=== PATIENT | female | born 1985 | race Caucasian/White ===

== ENCOUNTER 2025-03-13 02:58 | Emergency (ER) | payer OTHER, SELFPAY ==
[2025-03-13] VITALS (26 sets, daily range): BP systolic 126–148; BP diastolic 69–91; PULSE 51–70; TEMP 36.6; O2SAT 98–100; BMI 39.2
--- OUTSIDE RECORDS SUMMARY | 2025-03-13 03:06 | XMS_ITS | Clinical Summary ---
Author Organization [facility] Address [address] [place] [address] Care Team Providers Care Cultured Marble Products Maker Name Role Phone Bailey Ash MD Unavailable Allergies No known active allergies Medications MedicationSigDispense QuantityRefillsLast FilledStart DateEnd DateStatus omeprazole (PriLOSEC) [address] capsule Take 40 mg by mouth in the morning. Take before meals. Do not crush or chew. Active FLUoxetine (PROzac) 20 MG capsule Take 20 mg by mouth DailyActive busPIRone (Buspar) 10 MG tablet Take 10 mg by mouth in the morning and 10 mg before bedtime.Active spironolactone (Aldactone) 25 MG tablet Take 25 mg by mouth DailyActive loratadine (Claritin) 10 MG tablet Take 10 mg by mouthActive methylPREDNISolone (Medrol Dospak) 4 MG tablets Indications:Plantar fasciitisTake as directed on package. 21 tablet 5Active ammonium lactate (Amlactin) 12 % cream Indications:PorokeratosisApply topically Daily 140 g ctive meloxicam (Mobic) 15 MG tablet Indications:Plantar fasciitisTake 1 tablet (15 mg) by mouth Daily for 21 days 21 tablet Expired Active Problems No known active problems Encounters DateTypeDepartmentCare JantCgjgiiadhzy51/03/2025 9:00 AM EDTOffice Visit [facility] [address] [place] [address] Mathew Interiano DPM Plantar fasciitis (Primary Dx); Left foot pain; Equinus contracture of left ankle; Etyybkyzlspkm85/03/2025amboo flowsheet [facility] [address] [place] [id number] Mathew Interiano DPM 02/11/20257896Cmkuyb17/02/2025Travelfrom Last 3 Months Immunizations ImmunizationAdministration DatesNext GhrTWK132Pfizer Purple Cap SARS-CoV-2 Boyvaqpfogb30/10/2021,12/29/2020 Family History Medical HistoryRelationNameCommentsNo Known ProblemsFatherDiabetesMotherLupus Motherdegenerative disc diseaseMotherRelationNameStatusCommentsFatherMother Unknown Social History Tobacco UseTypesPacks/DayYears UsedDateSmoking Tobacco: NeverSmokeless Tobacco: Never Tobacco Cessation:Counseling Given: No Alcohol UseStandard Drinks/WeekCommentsNot Currently0 (1 standard drink = 0.6 oz pure alcohol)CommentsUnknownSex and Gender InformationValueDate Recorded Sex Assigned at BirthNot on fileLegal BuqXtkhrm07/22/2024 12:56 PM ESTGender IdentityNot on fileSexual OrientationNot on file Last Filed Vital Signs Vital SignReadingTime TakenCommentsBlood Pressure--Pulse--Temperature-- Respiratory Rate--Oxygen Saturation--Inhaled Oxygen Concentration--Gtyosc234 kg (250 lb)02/11/2025 9:04 AM XPRTrcvdu350.2 cm (5' 7 )02/11/2025 9:04 AM EDTBody Mass Index39.161 9:04 AM EDT Plan of Treatment DateTypeDepartmentCare Team (Latest Contact Info)Zwekjbhrbad49/07/2025 8:30 AM ESTOffice Visit [facility] [address] [place] [address] Mathew Interiano DPM [address] [place] [address] Health MaintenanceDue DateLast DoneCommentsPap Smear2007Cervical Cancer Lzeehwpyg54/08/2016HPV/Fzybyy9602/17/2016Influenza Vaccine (#1)2025 Insurance Care Teams Team MemberRelationshipSpecialtyStart DateEnd Date Bailey Ash MD [facility] [place] [address] Primary Care ProviderFamily Nstloqyq56/3/25
--- OUTSIDE RECORDS SUMMARY | 2025-03-13 03:06 | XMS_ITS | Clinical Summary ---
Author Organization [facility] Address [address], [address] [place] [address] Care Team Providers Care Rand Maker Name Role Phone Ruba Bean CORN CUTTER - PAPER DELIVERER Primary Care Provider [phone] Social History Tobacco UseTypesPacks/DayYears UsedDateSmoking Tobacco: Never Assessed CommentsUnknownSex and Gender InformationValueDate RecordedSex Assigned at Not on fileLegal RboFjebmd49/10/2013 7:29 PM ESTGender IdentityNot on fileSexual OrientationNot on file Plan of Treatment Health MaintenanceDue DateLast DoneCommentsDepression Mjybmd5502/16/1998Varicella vaccine (1 of 2 - 13+ 2-dose series)1999HIV piatkj2302/16/2001Hepatitis C qdvoov2802/17/2004Hepatitis B vaccine (1 of 3 - 19+ 3-dose series)2005Pap smear2007Cervical cancer xtoxhq3802/17/2016HPV (without or with Pap) 02/17/2016Flu vaccine (#1)5COVID-19 Vaccine ( season) 509/02/2021, 1DTaP/Tdap/Td vaccine (2 - Tdap)09/04/2031 09/03/2021HPV vaccine (No Doses Required)CompletedHepatitis A vaccineAged OutNo longer eligible based on patient's age to complete this topicHib vaccineAged Out No longer eligible based on patient's age to complete this topicMeningococcal (ACWY) vaccineAged OutNo longer eligible based on patient's age to complete this topicMeningococcal B vaccineAged OutNo longer eligible based on patient's age to complete this topicPneumococcal 0-49 years VaccineAged OutNo longer eligible based on patient's age to complete this topicPolio vaccineAged OutNo longer eligible based on patient's age to complete this topic Insurance * Guarantor: Charisma Bobby TypeRelation to PatientDate of BirthPhoneBilling AddressPersonal/SekvqsBwjl1985 [address] [place] [address] Care Teams Team MemberRelationshipSpecialtyStart DateEnd Date Ruba Bean APRN - ANU [address] [place] [address] PCP - GeneralNurse Practitioner06/16/23
--- OUTSIDE RECORDS SUMMARY | 2025-03-13 03:06 | XMS_ITS | Clinical Summary ---
Author Organization [facility] tem Address [id number] [place] [address] Care Team Providers Care Gun Fitter Name Role Phone Nilsa Baileyjulio Villalta APRN-PLASMA SPECIALIST Primary Care Provider + Allergies No known active allergies Medications MedicationSigDispense QuantityRefillsLast FilledStart DateEnd DateStatus FLUoxetine (PROzac) 20 mg capsule Take 1 capsule (20 mg total) by mouth in the morning.Active busPIRone (BUSPAR) 10 mg tablet Take 1 tablet (10 mg total) by mouth 3 (three) times a day.Active omeprazole (PriLOSEC) 40 mg capsule Take 1 capsule (40 mg total) by mouth in the morning.Active Active Problems No known active problems Encounters DateTypeDepartmentCare ZfxaWqbxctsfyvg14/02/2025 12:55 PM EDT - 01/11/2025 11:59 PM EDTHospital Encounter [facility] [address] [place] [address] Pain in left foot Discharge Disposition: Home01/11/2025Travelfrom Last 3 Months Family History Medical HistoryRelationNameCommentsDiabetesMotherHeart failureMotherLupusMother RelationNameStatusCommentsFatherUnknownMotherDeceased Social History Tobacco UseTypesPacks/DayYears UsedDateSmoking Tobacco: NeverSmokeless Tobacco: Never Tobacco Cessation:Counseling Given: Not Answered Alcohol UseStandard Drinks/WeekCommentsNot Currently0 (1 standard drink = 0.6 oz pure alcohol)ChildcareAnswerDate ZinjvzqxMcxeegbltFssjxpe99/12/2019Employment AnswerDate JbpeyyfnHgowsnihttWasylbj44/12/2019Hunger ScreeningAnswerDate RecordedWithin the past 12 months we worried whether our food would run out before we got money to buy more.Sometimes True07/16/2024Within the past 12 months the food we bought just didn't last and we didn't have money to get more. Never True07/16/2024CommentsUnknownSex and Gender InformationValueDate RecordedSex Assigned at BirthNot on fileLegal RmbArnizs80/06/2015 11:47 AM EDT Gender IdentityNot on fileSexual OrientationNot on file Last Filed Vital Signs Vital SignReadingTime TakenCommentsBlood Opqmzdjf676/70007/23/2024 10:26 AM EDT Ztrsx201107/23/2024 10:26 AM AQNXvxokluynjg30.1 ??C (97 ??F)07/23/2024 8:45 AM EDT Respiratory Oozo647907/23/2024 10:26 AM EDTOxygen Urahgbkgoq386%07/23/2024 10:26 AM EDTInhaled Oxygen Concentration--Heaoyz916.6 kg (246 lb)07/23/2024 8:45 AM APTPqudhl632.7 cm (5' 8 )07/23/2024 8:45 AM EDTBody Mass Index37. 8:45 AM EDT Plan of Treatment Health MaintenanceDue DateLast DoneCommentsDepression Nbtpcckvt94/08/1998Adult BMI Follow Up Plan02/17/2004Pap Smear2007Influenza Ghkgngo6201/10/2025dult BMI Wmclrasog69Tobacco Cgmwcouit76DTaP,Tdap and Td Vaccines (2 - Tdap) Medical Devices Not on file Procedures Procedure NamePriorityDate/TimeAssociated DiagnosisCommentsVITAMIN D 25 HYDROXY Bowlevo5201/11/2025 2:08 PM EDT Encounter for general adult medical examination without abnormal findings T3, SMAQGyldrqg85/02/2025 2:08 PM EDT Encounter for general adult medical examination without abnormal findings THYROID PROFILE INCLUDES TSH YY4Znqbpop13/02/2025 2:08 PM EDT Encounter for general adult medical examination without abnormal findings LIPID ZZIUVZWMgfmnej13/02/2025 2:08 PM EDT Encounter for general adult medical examination without abnormal findings CBC WITH AUTO BPMRVNQWVLOWFzuckzb16/02/2025 2:08 PM EDT Encounter for general adult medical examination without abnormal findings COMPREHENSIVE METABOLIC KCTIKEfhlgjw49/02/2025 2:08 PM EDT Encounter for general adult medical examination without abnormal findings XR FOOT LT MIN 3 LNEKhrfekn76/02/2025 1:39 PM EDT Pain in left foot from Last 3 Months Results * Thyroid profile includes TSH FT4 (01/11/2025 2:08 PM EDT)ComponentValueRef RangeTest MethodAnalysis TimePerformed AtPathologist SignatureFREE T40.630.61 - 1.60 ng/dL01/11/2025 6:50 PM [facility] LABORATORYTSH1.89 0.49 - 4.67 uIU/mL01/11/2025 6:50 PM [facility] Specimen (Source)Anatomical Location / LateralityCollection Method / Volume Collection TimeReceived TimeBloodVenous blood / UnknownVenipuncture / Unknown 01/11/2025 2:08 PM EDT01/11/2025 2:09 PM EDT Narrative Authorizing ProviderResult TypeResult StatusAiharry Ash SKIN PEELING MACHINE OPERATOR-CNPLAB BLOOD ORDERABLESFinal ResultPerforming OrganizationAddressCity/State/ZIP CodePhone Number [facility] [address] [place] [address], * CBC auto differential (01/11/2025 2:08 PM EDT)ComponentValueRef RangeTest MethodAnalysis TimePerformed AtPathologist SignatureWBC7.64 - 11 x10E9/L 01/11/2025 6:45 PM [facility] LABORATORYRBC Count4.603.8 - 5.2 X10E12/L01/11/2025 6:45 PM [facility] Poudhpqqhq72.911.7 - 15.5 g/dL01/11/2025 6:45 PM [facility] LILBMAZVQOCptqatrxmi37.035 - 47 %01/11/2025 6:45 PM [facility] WHGKKDRZLSUNZ4285 - 100 fL01/11/2025 6:45 PM [facility] UVFIQKVOPDLFC49.227 - 34 pg01/11/2025 6:45 PM [facility] YOOXFHUVUOSNJK30.932 - 36 g/dL01/11/2025 6:45 PM [facility] XUOGREKAHSSQK46.211.5 - 15 %01/11/2025 6:45 PM [facility] LABORATORYPlatelet Hghmz673832 - 450 X10E9/L01/11/2025 6:45 PM [facility] LABORATORYMPV8.97 - 12 fL01/11/2025 6:45 PM [facility] LABORATORYNeutrophils %59.2%01/11/2025 6:45 PM [facility] LABORATORYLymphocytes %31.1%01/11/2025 6:45 PM [facility] LABORATORYMonocytes %7.4%01/11/2025 6:45 PM [facility] LABORATORYEosinophils %1.6%01/11/2025 6:45 PM [facility] LABORATORYBasophils %0.7%01/11/2025 6:45 PM [facility] LABORATORYNeutrophils Absolute (A)4.51.5 - 6.6 10*3/uL 01/11/2025 6:45 PM [facility] LABORATORYLymphocytes Absolute 2.41.0 - 3.5 10*3/uL01/11/2025 6:45 PM [facility] Monocytes Absolute0.60.0 - 0.9 10*3/uL01/11/2025 6:45 PM [facility] LABORATORYEosinophils Absolute0.10.0 - 0.4 10*3/uL01/11/2025 6:45 PM [facility] LABORATORYBasophils Absolute0.00.0 - 0.2 10*3/uL 01/11/2025 6:45 PM [facility] LABORATORYDifferential Type AUTOMATED HFCDTOASEBFP36/02/2025 6:45 PM [facility] LABORATORYSpecimen (Source)Anatomical Location / LateralityCollection Method / VolumeCollection TimeReceived TimeBloodVenous blood / UnknownVenipuncture / Zrvfjxy0001/11/2025 2:08 PM EDT01/11/2025 2:09 PM EDT Narrative Authorizing ProviderResult TypeResult StatusAiharry Ash SKIN PEELING MACHINE OPERATOR-CNPLAB BLOOD ORDERABLESFinal ResultPerforming OrganizationAddressCity/State/ZIP CodePhone Number [facility] [address] [place] [address], * (ABNORMAL) Vitamin D 25 hydroxy (01/11/2025 2:08 PM EDT)ComponentValueRef RangeTest MethodAnalysis TimePerformed AtPathologist SignatureVITAMIN D 25 HYD TOT16.1(L)30.0 - 100.0 ng/mL01/11/2025 6:53 PM [facility] LABORATORYSpecimen (Source)Anatomical Location / LateralityCollection Method / VolumeCollection TimeReceived TimeBloodVenous blood / UnknownVenipuncture / Ldqjxhz8401/11/2025 2:08 PM EDT01/11/2025 2:09 PM EDT Narrative [facility] - 01/11/2025 6:53 PM EDT Vitamin D status 25 [place] Vitamin D Deficiency <20 ng/mL Insufficiency ? 20-29 ng/mL Sufficiency ? 30-100 ng/mL Toxicity >100 ng/mL NOTE: A pediatric reference range has not been established by the hand sizer of this kit. The [place] [employer] recommends a Vitamin D level of = or >20ng/mL in infants and children. Authorizing ProviderResult TypeResult StatusYasmineharry Ash [facility] BLOOD ORDERABLESFinal ResultPerforming OrganizationAddressCity/State/ZIP CodePhone Number [facility] [address] [place] [address], * T3, free (01/11/2025 2:08 PM EDT)ComponentValueRef RangeTest MethodAnalysis TimePerformed AtPathologist SignatureFREE T33.372.50 - 3.90 pg/mL01/11/2025 6:40 PM [facility] LABORATORYSpecimen (Source)Anatomical Location / LateralityCollection Method / VolumeCollection TimeReceived Time BloodVenous blood / UnknownVenipuncture / Ccylcdh7401/11/2025 2:08 PM EDT 01/11/2025 2:09 PM EDT Narrative Authorizing ProviderResult TypeResult StatusYasmineharry Ash SKIN PEELING MACHINE OPERATOR-[facility]AB BLOOD ORDERABLESFinal ResultPerforming OrganizationAddressCity/State/ZIP CodePhone Number [facility] [address] [place] [address], * Lipid profile (01/11/2025 2:08 PM EDT)ComponentValueRef RangeTest Method Analysis TimePerformed AtPathologist WzujgbucgCHYBUCARCGC261631 - 200 mg/dL 01/11/2025 6:35 PM [facility] OIONWFMOJCIQTZFYRHDXJF2994 - 150 mg/dL01/11/2025 6:35 PM [facility] LABORATORYHDL BBAQIXDDNLM46>39 mg/dL01/11/2025 6:35 PM [facility] LABORATORYComment: HDL <40 mg/dL - High Risk HDL > or = 40mg/dL- Desirable HDL >60 mg/dL - Negative Risk LDL (CALC)106<130 mg/dL01/11/2025 6:35 PM [facility] Comment: LDL <100 mg/dL - Desirable LDL >160 mg/dL - High Risk CHOLESTEROL:HDL3.31.0 - 5.009 6:35 PM [facility] LABORATORYVERY LOW DLHTKXBBKHT160 - 30 mg/dL01/11/2025 6:35 PM [facility] LABORATORYSpecimen (Source)Anatomical Location / Laterality Collection Method / VolumeCollection TimeReceived TimeBloodVenous blood / UnknownVenipuncture / Mhcsuny1301/11/2025 2:08 PM EDT01/11/2025 2:09 PM EDT Narrative Authorizing ProviderResult TypeResult StatusAiharry Ambar Nilsa SKIN PEELING MACHINE OPERATOR-CNPLAB BLOOD ORDERABLESFinal ResultPerforming OrganizationAddressCity/State/ZIP CodePhone Number [facility] [address] [place] [phone], * Comprehensive metabolic panel (01/11/2025 2:08 PM EDT)ComponentValueRef Range Test MethodAnalysis TimePerformed AtPathologist VfswihcyyBYCIVS624376 - 146 mmol/L01/11/2025 6:35 PM [facility] LABORATORYPOTASSIUM3.83.5 - 5.0 mmol/L01/11/2025 6:35 PM [facility] LABORATORYCHLORIDE 31366 - 109 mmol/L01/11/2025 6:35 PM [facility] CARBON CPLUEMF2818 - 32 mmol/L01/11/2025 6:35 PM [facility] LABORATORYANION GAP75 - 15 mmol/L01/11/2025 6:35 PM [facility] LABORATORYBLOOD UREA QTNJQJSA824 - 23 mg/dL01/11/2025 6:35 PM [facility] LABORATORYCREATININE0.630.40 - 1.00 mg/dL01/11/2025 6:35 PM [facility] LABORATORYComment:METHOD TRACEABLE TO IDMS BRFLLUWPHQFBHGV9858 - 99 mg/dL01/11/2025 6:35 PM [facility] LABORATORYCALCIUM9.68.5 - 10.5 mg/dL01/11/2025 6:35 PM [facility] LABORATORYTOTAL PROTEIN7.66.0 - 8.0 g/dL01/11/2025 6:35 PM [facility] LABORATORYALBUMIN4.23.2 - 5.3 g/dL01/11/2025 6:35 PM EDT [facility] LABORATORYALKALINE OIJKXSRGEVM7478 - 130 U/L 01/11/2025 6:35 PM [facility] UMSLXJHVLDXHM93<=41 U/L 01/11/2025 6:35 PM [facility] EYFHUUTDUMLGN89<=31 U/L 01/11/2025 6:35 PM [facility] LABORATORYBILIRUBIN,TOTAL0.40.3 - 1.2 mg/dL01/11/2025 6:35 PM [facility]ORYEGFR Non- Race Dependent>90>=60 ml/min/1.73sq.m001/11/2025 6:35 PM [facility] LABORATORYComment: Reported eGFR is based on the CKD-EPI 2020 equation that does not use a race coefficient. Specimen (Source)Anatomical Location / LateralityCollection Method / Volume Collection TimeReceived TimeBloodVenous blood / UnknownVenipuncture / Unknown 01/11/2025 2:08 PM EDT01/11/2025 2:09 PM EDT Narrative Authorizing ProviderResult TypeResult StatusAiharry Ash SKIN PEELING MACHINE OPERATOR-CNPLAB BLOOD ORDERABLESFinal ResultPerforming OrganizationAddressCity/State/ZIP CodePhone Number [facility] [address] [place] [address], * X-ray foot left minimum 3 views (01/11/2025 1:39 PM EDT)Anatomical Region LateralityModalityLower Extremities, MSK, FootLeftComputed RadiographySpecimen (Source)Anatomical Location / LateralityCollection Method / VolumeCollection TimeReceived Time01/11/2025 5:51 PM EDT Narrative 01/11/2025 5:51 PM EDT Procedure: Left foot radiographs performed Number of views:3 History:Foot pain Comparison:None Findings: There is no fracture, dislocation, or destructive lesion. Joint space is well preserved. Impression: No acute findings. Finalized by Juaquin Peter MD on 01/11/2025 5:51 PM Procedure Note Juaquin Peter MD - 01/11/2025 Procedure: Left foot radiographs performed Number of views:3 History:Foot pain Comparison:None Findings: There is no fracture, dislocation, or destructive lesion. Jointspace is well preserved. Impression: No acute findings. Finalized by Juaquin Peter MD on 01/11/2025 5:51 PM Authorizing ProviderResult TypeResult StatusAiharry Ash APRN-CNPIMG DIAGNOSTIC IMAGING ORDERABLESFinal Result from Last 3 Months Insurance * Guarantor: Charisma BobbyAccount TypeRelation to PatientDate of BirthPhone Billing AddressPersonal/RknbkqBndx1985 [address] [place] [address] Care Teams Team MemberRelationshipSpecialtyStart DateEnd Date Bailey Ash, SKIN PEELING MACHINE OPERATOR-PLASMA SPECIALIST [address] [place] [address] PCP - GeneralNurse Practitioner12/31/23
--- NOTE | 2025-03-13 03:26 | ECG_ITS ---
[facility] Test Date: 2025-03-13 Pat Name: ARAMIS GOODRICH Department: Room: - Gender: Female Leader Tier: : 1985 Requested By: [id number] Order Number: [id number] Reading MD: KEY GENAO M.D. Measurements Intervals [place] Rate: 55 P: 60 NV: 162 QRS: 25 QRSD: 80 T: 34 QT: 386 QTc: 374 Interpretive Statements 1100 Sinus rhythm 8102 Low QRS voltage in chest leads 9150 abnormal ECG No previous ECG available for comparison Electronically Signed On 03-13-2025 9:43:37 EST by KEY GENAO M.D.
--- NOTE | 2025-03-13 03:27 | ED.GENADUL1 ---
Documented by User: Uriel Garces MD 03/13/25 03:28 HPI HPI - General Adult General Chief complaint: Chest Pain Stated complaint: chest pain Time Seen by Provider: 03/13/25 03:02 Source: patient Mode of arrival: walk-in History of Present Illness HPI narrative: 40-year-old female presented to the emergency department for chest and abdominal pain. This started 5 or 6 hours ago when she was just relaxing. She had some chicken Freddie earlier tonight. It is bilateral and below each breast and wraps all the way around. No trauma or fever. No vomiting constipation or diarrhea. She has never had pain like this before. Related Data Home Medications ?Medication ?Instructions ?Recorded ?Confirmed buspirone 10 mg tablet mg 03/13/25 fluoxetine 10 mg capsule mg 03/13/25 meloxicam 15 mg tablet mg 03/13/25 spironolactone 25 mg tablet mg 03/13/25 Previous Rx's ?Medication ?Instructions ?Recorded hyoscyamine sulfate 0.125 mg 0.125 mg PO Q6H PRN abdominal pain 03/13/25 sublingual tablet (Levsin/SL) #20 tabs ondansetron 4 mg disintegrating 4 mg PO Q6H PRN nausea and 03/13/25 tablet vomiting #20 tabs Allergies Allergy/AdvReac Type Severity Reaction Status Date / Time No Known Drug Allergies Allergy Verified 03/13/25 03:18 Review of Systems ROS Narrative A ten point review of systems is negative except as noted above. PFSH PFSH Social History Little interest or pleasure in doing things: not at all Feeling down, depressed, or hopeless: not at all Exam Narrative Exam Narrative: Nurses note and vital signs reviewed General:The patient appears well and in no apparent distress.Patient is resting comfortably on cart. Skin:Warm, dry, no pallor noted.There is no rash noted. Head:Normocephalic, atraumatic Eye: Normal conjunctiva, no drainage Ears, Nose, Mouth, and Throat: oral mucosa is moist. Nares patent. Cardiovascular:Regular Rate and Rhythm Respiratory:Patient is in no distress, no accessory muscle use, lungs are clear to auscultation, no wheezing, rales or rhonchi Back:non-tender GI: Soft and nondistended. No masses. She has minimal tenderness in the left upper quadrant, epigastric area, and right upper quadrant. Musculoskeletal: The patient has no evidence of calf tenderness, no pitting edema, symmetrical pulses noted bilaterally Neurological:A&O, normal speech Psychiatric:Cooperative Constitutional Vital Signs, click to edit/add: Last Vital Signs Temp 98 F 03/13/25 03:16 Pulse 53 L 03/13/25 07:40 Resp 17 03/13/25 07:40 BP 126/80 03/13/25 04:00 Pulse Ox 99 03/13/25 04:00 O2 Del Method Room Air 03/13/25 03:16 Course Vital Signs Vital signs: Vital Signs Temperature 98 F 03/13/25 03:16 Pulse Rate 59 L 03/13/25 03:16 Respiratory Rate 16 03/13/25 03:16 Blood Pressure 148/91 H 03/13/25 03:16 Pulse Oximetry 98 03/13/25 03:16 Oxygen Delivery Method Room Air 03/13/25 03:16 Temperature 98 F 03/13/25 03:16 Pulse Rate 53 L 03/13/25 07:40 Respiratory Rate 17 03/13/25 07:40 Blood Pressure 126/80 03/13/25 04:00 Pulse Oximetry 99 03/13/25 04:00 Oxygen Delivery Method Room Air 03/13/25 03:16 Medical Decision Making Lab Data Labs: Lab Results 03/13/25 Range/Units 03:25 WBC 8.7 (4.0-11.0) 10^3/uL RBC 4.20 (4.20-5.40) 10^6/uL Hgb 12.7 (12.0-16.0) g/dL Hct 37.8 (36.0-48.0) % MCV 90.0 (81.0-99.0) fL MCH 30.2 (26.7-34.0) pg MCHC 33.6 (29.9-35.2) g/dL RDW 12.7 (11.0-15.0) % Plt Count 272 (150-450) 10^3/uL MPV 11.4 (9.5-13.5) fL Neut % (Auto) 67.4 (43.0-75.0) % Lymph % (Auto) 22.9 (20.5-60.0) % [place] % (Auto) 6.5 (1.7-12.0) % Eos % (Auto) 1.3 (0.9-7.0) % Baso % (Auto) 0.7 (0.2-2.0) % Neut # (Auto) 5.9 (1.4-6.5) 10^3/uL Lymph # (Auto) 2.0 (1.2-3.8) 10^3/uL [place] # (Auto) 0.6 (0.3-0.8) 10^3/uL Eos # (Auto) 0.1 (0.0-0.7) 10^3/uL Baso # (Auto) 0.1 (0.0-0.1) 10^3/uL Abs Immat Gran (auto) 0.10 H (0.00-0.03) 10^3/uL Imm/Tot Granulo (auto) 1.2 H (0.0-0.5) % D-Dimer 0.21 (<=0.59) mg/L FEU Sodium 137 (136-145) mmol/L Potassium 3.5 (3.5-5.1) mmol/L Chloride 102 (98-107) mmol/L Carbon Dioxide 29.2 (21.0-32.0) mmol/L Anion Gap 9.3 BUN 12.0 (7.0-18.0) mg/dL Creatinine 0.61 (0.55-1.02) mg/dL Est GFR ( Amer) >60 (>=60 mL/min/1.73m^2) Est GFR (Non-Af Amer) >60 (>=60 mL/min/1.73m^2) BUN/Creatinine Ratio 19.7 Glucose 111 H (74-106) mg/dL Calcium 8.8 (8.5-10.1) mg/dL Total Bilirubin <0.1 L (0.2-1.0) mg/dL Direct Bilirubin <0.1 (0.0-0.2) mg/dL AST 16 (15-37) U/L ALT 19 (14-59) U/L Alkaline Phosphatase 88 (46-116) U/L Troponin I High Sens 4.8 (4.0-51.3) pg/mL Total Protein 7.0 (6.4-8.2) g/dL Albumin 3.2 L (3.4-5.0) g/dL Globulin 3.8 g/dL Albumin/Globulin Ratio 0.8 Amylase 40 (25-115) U/L Lipase 36.0 (16.0-77.0) U/L Serum HCG, Qual Negative (NEGATIVE) Imaging Data CXR, CT ABD/PELVIS: Radiologist's impression: ITS Impressions Chest X-Ray 03/13/25 03:30 IMPRESSION: Negative for acute pleural or parenchymal disease Impression dictated by: Rafael Tejeda M.D. 03/13/2025 7:53 AM Dictation Location: [employer] [employer] Electronically authenticated by: [id number] Y Date: 03/13/2025 07:[address] 03/13/25 04:52 IMPRESSION: Cholelithiasis. Otherwise negative acute inflammatory process or bowel obstruction within the abdomen. Impression dictated by: Rafael Tejeda M.D. 03/13/2025 7:56 AM Dictation Location: [facility] Electronically authenticated by: [id number] Y Date: 03/13/2025 07:56 ECG Data Attestation: I personally reviewed and interpreted this ECG as follows: (EKG on my interpretation shows normal sinus rhythm with rate of 55 and no acute change.) Discharge Plan Discharge Chief Complaint: Chest Pain Clinical Impression: Cholelithiasis, Abdominal pain Patient Disposition: Home, Self-Care Time of Disposition Decision: 08:10 Prescriptions / Home Meds: New hyoscyamine sulfate [Levsin/SL] 0.125 mg tablet, sublingual 0.125 mg PO Q6H PRN (Reason: abdominal pain) Qty: 20 0RF ondansetron 4 mg tablet,disintegrating 4 mg PO Q6H PRN (Reason: nausea and vomiting) Qty: 20 0RF No Action meloxicam 15 mg tablet spironolactone 25 mg tablet buspirone 10 mg tablet fluoxetine 10 mg capsule Print Language: Andorran Instructions: Gallstones (ED), Abdominal Pain (ED) Referrals: Bailey Ash, KATHLEEN [Primary Care Provider] - 1 week Documented by User: Santino Ortiz 03/13/25 08:11 HPI HPI - General Adult General Chief complaint: Chest Pain Stated complaint: chest pain Time Seen by Provider: 03/13/25 03:02 Related Data Home Medications ?Medication ?Instructions ?Recorded ?Confirmed buspirone 10 mg tablet mg 03/13/25 fluoxetine 10 mg capsule mg 03/13/25 meloxicam 15 mg tablet mg 03/13/25 spironolactone 25 mg tablet mg 03/13/25 Previous Rx's ?Medication ?Instructions ?Recorded hyoscyamine sulfate 0.125 mg 0.125 mg PO Q6H PRN abdominal pain 03/13/25 sublingual tablet (Levsin/SL) #20 tabs ondansetron 4 mg disintegrating 4 mg PO Q6H PRN nausea and 03/13/25 tablet vomiting #20 tabs Allergies Allergy/AdvReac Type Severity Reaction Status Date / Time No Known Drug Allergies Allergy Verified 03/13/25 03:18 PFSH PFSH Social History Little interest or pleasure in doing things: not at all Feeling down, depressed, or hopeless: not at all Exam Constitutional Vital Signs, click to edit/add: Last Vital Signs Temp 98 F 03/13/25 03:16 Pulse 53 L 03/13/25 07:40 Resp 17 03/13/25 07:40 BP 126/80 03/13/25 04:00 Pulse Ox 99 03/13/25 04:00 O2 Del Method Room Air 03/13/25 03:16 Course Vital Signs Vital signs: Vital Signs Temperature 98 F 03/13/25 03:16 Pulse Rate 59 L 03/13/25 03:16 Respiratory Rate 16 03/13/25 03:16 Blood Pressure 148/91 H 03/13/25 03:16 Pulse Oximetry 98 03/13/25 03:16 Oxygen Delivery Method Room Air 03/13/25 03:16 Temperature 98 F 03/13/25 03:16 Pulse Rate 53 L 03/13/25 07:40 Respiratory Rate 17 03/13/25 07:40 Blood Pressure 126/80 03/13/25 04:00 Pulse Oximetry 99 03/13/25 04:00 Oxygen Delivery Method Room Air 03/13/25 03:16 Medical Decision Making MDM Narrative Medical decision making narrative: Patient signed out to me at [address] Garces's description of the HPI and physical exam are detailed above. CBC normal with normal white blood cell count. D-dimer is negative. CMP is normal. Lipase is negative. hCG negative. Chest x-ray read by radiologist as negative. CT scan reveals cholelithiasis without acute inflammatory process or bowel obstruction within the abdomen. Patient informed of results and given reassurance. She was discharged home with referral to local surgeon for follow-up. Lab Data Lab results reviewed: Yes I reviewed the patient's lab results Labs: Lab Results 03/13/25 Range/Units 03:25 WBC 8.7 (4.0-11.0) 10^3/uL RBC 4.20 (4.20-5.40) 10^6/uL Hgb 12.7 (12.0-16.0) g/dL Hct 37.8 (36.0-48.0) % MCV 90.0 (81.0-99.0) fL MCH 30.2 (26.7-34.0) pg MCHC 33.6 (29.9-35.2) g/dL RDW 12.7 (11.0-15.0) % Plt Count 272 (150-450) 10^3/uL MPV 11.4 (9.5-13.5) fL Neut % (Auto) 67.4 (43.0-75.0) % Lymph % (Auto) 22.9 (20.5-60.0) % [place] % (Auto) 6.5 (1.7-12.0) % Eos % (Auto) 1.3 (0.9-7.0) % Baso % (Auto) 0.7 (0.2-2.0) % Neut # (Auto) 5.9 (1.4-6.5) 10^3/uL Lymph # (Auto) 2.0 (1.2-3.8) 10^3/uL [place] # (Auto) 0.6 (0.3-0.8) 10^3/uL Eos # (Auto) 0.1 (0.0-0.7) 10^3/uL Baso # (Auto) 0.1 (0.0-0.1) 10^3/uL Abs Immat Gran (auto) 0.10 H (0.00-0.03) 10^3/uL Imm/Tot Granulo (auto) 1.2 H (0.0-0.5) % D-Dimer 0.21 (<=0.59) mg/L FEU Sodium 137 (136-145) mmol/L Potassium 3.5 (3.5-5.1) mmol/L Chloride 102 (98-107) mmol/L Carbon Dioxide 29.2 (21.0-32.0) mmol/L Anion Gap 9.3 BUN 12.0 (7.0-18.0) mg/dL Creatinine 0.61 (0.55-1.02) mg/dL Est GFR ( Amer) >60 (>=60 mL/min/1.73m^2) Est GFR (Non-Af Amer) >60 (>=60 mL/min/1.73m^2) BUN/Creatinine Ratio 19.7 Glucose 111 H (74-106) mg/dL Calcium 8.8 (8.5-10.1) mg/dL Total Bilirubin <0.1 L (0.2-1.0) mg/dL Direct Bilirubin <0.1 (0.0-0.2) mg/dL AST 16 (15-37) U/L ALT 19 (14-59) U/L Alkaline Phosphatase 88 (46-116) U/L Troponin I High Sens 4.8 (4.0-51.3) pg/mL Total Protein 7.0 (6.4-8.2) g/dL Albumin 3.2 L (3.4-5.0) g/dL Globulin 3.8 g/dL Albumin/Globulin Ratio 0.8 Amylase 40 (25-115) U/L Lipase 36.0 (16.0-77.0) U/L Serum HCG, Qual Negative (NEGATIVE) Imaging Data CXR, CT ABD/PELVIS: Radiologist's impression: ITS Impressions Chest X-Ray 03/13/25 03:30 IMPRESSION: Negative for acute pleural or parenchymal disease Impression dictated by: Rafael Tejeda M.D. 03/13/2025 7:53 AM Dictation Location: [place] [address] Electronically authenticated by: [id number] Y Date: 03/13/2025 07:[address] 03/13/25 04:52 IMPRESSION: Cholelithiasis. Otherwise negative acute inflammatory process or bowel obstruction within the abdomen. Impression dictated by: Rafael Tejeda M.D. 03/13/2025 7:56 AM Dictation Location: [place] [address] Electronically authenticated by: [id number] Y Date: 03/13/2025 07:56 Discharge Plan Discharge Chief Complaint: Chest Pain Clinical Impression: Cholelithiasis, Abdominal pain Patient Disposition: Home, Self-Care Time of Disposition Decision: 08:10 Prescriptions / Home Meds: New hyoscyamine sulfate [Levsin/SL] 0.125 mg tablet, sublingual 0.125 mg PO Q6H PRN (Reason: abdominal pain) Qty: 20 0RF ondansetron 4 mg tablet,disintegrating 4 mg PO Q6H PRN (Reason: nausea and vomiting) Qty: 20 0RF No Action meloxicam 15 mg tablet spironolactone 25 mg tablet buspirone 10 mg tablet fluoxetine 10 mg capsule Print Language: Andorran Instructions: Gallstones (ED), Abdominal Pain (ED) Referrals: Bailey Ash CNP [Primary Care Provider] - 1 week
--- NOTE | 2025-03-13 03:30 | XR_ITS ---
[address] [address] Patient Name: ARAMIS GOODRICH MRN: [id number] date: 1985 Sex: F Assigned Patient Location: ER Current Patient Location: ER Accession/Order Number: [id number] Exam Date: 03/13/2025 03:28 Report Date: 03/13/2025 07:53 At the request of: GE MINA MD Procedure: XR chest 1V PA CHEST: CLINICAL HISTORY: Chest pain COMPARISON: None Unremarkable cardiomediastinal silhouette. Lungs are clear. No effusion or pneumothorax. XR/XR chest 1V IMPRESSION: Negative for acute pleural or parenchymal disease Impression dictated by: Rafael Tejeda M.D. 03/13/2025 7:53 AM Dictation Location: [place] [address] Electronically authenticated by: [id number] Y Date: 03/13/2025 07:53
[2025-03-13] MEDS: lidocaine HCL 15 ML, MAG HYDROX/ALUMINUM HYD/SIMETH 30 ML, HYOSCYAMINE SULFATE 0.25 MG PO (03:43)
[2025-03-13 04:03] LABS: Alanine Aminotransferase 19 U/L (14-59); Albumin Globulin Ratio 0.8; Albumin Level 3.2 g/dL (3.4-5.0); Alkaline Phosphatase 88 U/L (46-116); Amylase 40 U/L (25-115); Anion Gap 9.3; Aspartate Amino Transferase 16 U/L (15-37); Blood Urea Nitrogen 12.0 mg/dL (7.0-18.0); Calcium 8.8 mg/dL (8.5-10.1); Carbon Dioxide 29.2 mmol/L (21.0-32.0); Chloride 102 mmol/L (98-107); Estimated GFR (African America >60 (>=60 mL/min/1.73m^2); Estimated GFR (Non-African Ame >60 (>=60 mL/min/1.73m^2); Globulin 3.8 g/dL; Glucose 111 mg/dL (74-106); Hematocrit 37.8 % (36.0-48.0); Hemoglobin 12.7 g/dL (12.0-16.0); Immature Granulocytes Abs Auto 0.10 10^3/uL (0.00-0.03); Immature Granulocytes Pct Auto 1.2 % (0.0-0.5); Lipase 36.0 U/L (16.0-77.0); Lymphocytes Absolute Auto 2.0 10^3/uL (1.2-3.8); Mean Corpuscular HGB Conc 33.6 g/dL (29.9-35.2); Mean Corpuscular Hemoglobin 30.2 pg (26.7-34.0); Mean Corpuscular Volume 90.0 fL (81.0-99.0); Platelet Count 272 10^3/uL (150-450); Potassium 3.5 mmol/L (3.5-5.1); Red Blood Count 4.20 10^6/uL (4.20-5.40); Sodium 137 mmol/L (136-145); Total Protein 7.0 g/dL (6.4-8.2); White Blood Count 8.7 10^3/uL (4.0-11.0)
--- NOTE | 2025-03-13 04:52 | CT_ITS ---
The [address] [address] Patient Name: ARAMIS GOODRICH MRN: [id number] date: 1985 Sex: F Assigned Patient Location: ER Current Patient Location: Accession/Order Number: [id number] Exam Date: 03/13/2025 04:48 Report Date: 03/13/2025 07:56 At the request of: GE MINA MD Procedure: CT abdomen w con CT ABDOMEN WITH INTRAVENOUS CONTRAST: CLINICAL HISTORY: abdominal pain COMPARISON: None TECHNIQUE: Spiral images were obtained through the abdomen following the administration of intravenous contrast. This CT exam was performed using one or more following dose reduction techniques: Automated exposure control, adjustment of the mA and/or kV according to patient size, or use of iterative reconstruction technique. FINDINGS: Lung Bases: [Hypoventilatory changes. Small hiatal hernia.] Organs:Cholelithiasis. Otherwise the liver, spleen, adrenals, kidneys, and pancreas unremarkable.[ GI: Mild retained stool within the visualized colonic loops. No bowel obstruction. Appendix not included within the [id number]-yd-[id number].[ Peritoneum/Retroperitoneum:No free air within the [id number].[There is less aorta unremarkable caliber. Abd wall/Bones:No suspicious osseous findings within the [id number]-[id number].[ CT/CT abdomen w con IMPRESSION: Cholelithiasis. Otherwise negative acute inflammatory process or bowel obstruction within the abdomen. Impression dictated by: Rafael Tejeda M.D. 03/13/2025 7:56 AM Dictation Location: [facility] Electronically authenticated by: [id number] Y Date: 03/13/2025 07:56
== END 2025-03-13 08:27 | disposition home or self-care (01) ==
PROVIDERS: Emergency Provider Emergency Medicine; PCP Nurse Practitioner Family
DX: K80.20 Calculus of gallbladder without cholecystitis without obstruction (principal); R10.9 Unspecified abdominal pain; R07.9 Chest pain, unspecified
CPT/HCPCS: 36415; 71045; 74160; 80048; 80076; 82150; 83690; 84484; 84703; 85025; 85378; 93005; 99285; Q9967